=== PATIENT | male | born 1955 | race Caucasian/White ===

== ENCOUNTER 2016-07-25 19:33 | Emergency (ER) ==
[2016-07-25 19:38] VITALS: BP 179/82; TEMP 99.4; BMI 31.4
[2016-07-25] MEDS ORDERED: DUONEB NEB STA (19:50)
--- NOTE | 2016-07-25 19:57 | ED.PDOC ---
General ED Provider: Dr. THERESA MONTELONGO Chief Complaint: Weakness Stated Complaint: Patient is a 60 year old who comes to the ER with symtoms of feeling pooly for one month. He was treated by Dr. Hernandez with Steroids and Z pack felt somewhat better but then bad again. Had chest pain two weeks ago. Now only has mild shortness of breath. Has a family history of CAD. Quit smoking over 5 years ago. 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 Time Seen by Physician: 19:49 Mode of Arrival: Walk-In Information Source: Patient Exam Limitations: No limitations Primary Care Provider: JEAN CLAUDE HERNANDEZ Nursing and Triage Documentation Reviewed and Agree: Yes Respiratory Complaint Exam - Shortness of Air Complaint/Exam Onset/Duration: 1 month Symptoms Are: Still present Initial Severity: Mild Current Severity: Moderate Character: Reports: Dyspnea at rest Aggravating: Reports: None Associated Signs and Symptoms: Reports: Cough, Chest pain, Fever, Chills. Denies: Diaphoresis, Nasal congestion, Dizziness, Calf pain, Calf swelling, Edema, Rapid breathing, Labored breathing, Decreased intake Related History: Denies: Similar episode, Allergic reaction, Recent trauma, Obesity History of Healthcare-Acquired Pneumonia: No Pulmonary Embolism Risk Factors: Reports: None Cardiac Risk Factors: Reports: None Pseudomonas Risk Factors: Reports: None Tuberculosis Risk Factors: Reports: None Home Oxygen Use: Yes Recent Stress Test: No Recent Echo/LV Function: No Respiratory Distress: None Stridor Present: No Tracheal Deviation: No Subcutaneous Emphysema: No Accessory Muscle Use: No Retractions: Not Present Diminished Breath Sounds: No Prolonged Expiratory Phase: No Unable to Speak Full Sentences: No Fatigue: No Leg Swelling: No Faizan's Sign Present: No Grunting Respirations: No Kussmaul Respirations: No Differential Diagnoses: Pulmonary Edema, RI, Pneumonia, Bronchitis, Bronchiolitis, GERD, URI Quality Indicator For Non-Traumatic Chest Pain/Syncope: EKG Performed Review of Systems - Review Of Systems Constitutional: Reports: No symptoms Eyes: Reports: No symptoms Ears, Nose, Mouth, Throat: Reports: No symptoms Respiratory: Reports: Cough (two weeks ago), Short of air Cardiac: Reports: Chest pain (two week ago none today ) GI: Reports: No symptoms : Reports: No symptoms Musculoskeletal: Reports: No symptoms Skin: Reports: No symptoms Neurological: Reports: Anxiety Endocrine: Reports: No symptoms Hematologic/Lymphatic: Reports: No symptoms All Other Systems: Reviewed and Negative Past Medical History - Past Medical History Endocrine: Reports: DM 2 Cardiovascular: Reports: Hypertension Respiratory: Reports: None Hematological: Reports: None Gastrointestinal: Reports: None Genitourinary: Reports: None Neuro/Psych: Reports: Anxiety Musculoskeletal: Reports: None Cancer: Reports: None - Surgical History General Surgical History: Reports: None - Family History Family History: Reports: Heart, Cancer - Social History Smoking Status: Former smoker Hx Substance Use: No Alcohol Screening: Occasionally Physical Exam - Physical Exam Appearance: Ill-appearing Ill-appearing: Moderate Pain Distress: Mild Eyes: ALL, EOMI, Conjunctiva clear ENT: Ears normal, Nose normal, Oropharynx normal Neck: Supple Respiratory: Airway patent, Breath sounds clear, Breath sounds equal, Respirations nonlabored Cardiovascular: RRR, Pulses normal, No rub, No murmur GI/: Soft, Nontender, No masses, Bowel sounds normal, No Organomegaly Musculoskeletal: Normal strength, ROM intact, No edema, No calf tenderness Skin: Warm Neurological: Sensation intact, Motor intact Psychiatric: Anxious Critical Care Note - Critical Care Note Total Time (mins): 15 Course - Course Hematology/Chemistry: 07/25/16 19:59 07/25/16 19:59 Orders, Labs, Meds: Lab Review 07/25/16 07/25/16 07/25/16 19:59 20:04 20:17 WBC 9.69 RBC 5.40 Hgb 15.6 Hct 45.5 MCV 84.3 MCH 28.9 MCHC 34.3 RDW Coeff of Jack 13.1 Plt Count 184 Immature Gran % (Auto) 0.3 Neut % (Auto) 83.0 Lymph % (Auto) 8.0 L Mcdonough % (Auto) 6.6 Eos % (Auto) 1.8 Baso % (Auto) 0.3 Immature Gran # (Auto) 0.0 Neut # 8.0 H Lymph # 0.8 Mcdonough # 0.6 Eos # 0.2 Baso # 0.0 D-Dimer (Manual) 356.45 Puncture Site Lb O2 Saturation 96.0 ABG pH 7.424 ABG pCO2 33.1 L ABG pO2 76.0 L ABG HCO3 21.6 L ABG Total CO2 23 ABG Base Excess -3 L Tad Test + FiO2 % 21.0 Sodium 137 Potassium 4.5 Chloride 105 Carbon Dioxide 20 L Anion Gap 16.5 BUN 20 H Creatinine 1.10 Estimated GFR (MDRD) 68.00 BUN/Creatinine Ratio 18.18 Glucose 116 H Lactic Acid 10.3 Calcium 9.5 Total Bilirubin 0.96 AST 32 ALT 49 Alkaline Phosphatase 95 Total Creatine Kinase 62 Troponin I 0.0130 B-Natriuretic Peptide < 10 Total Protein 7.8 Albumin 3.9 Globulin 3.9 Albumin/Globulin Ratio 1.00 Procalcitonin < 0.05 Influenza A (Rapid) Negative Influenza B (Rapid) Negative Orders Category Date Time Status ABG DRAW REQUEST Stat CARDIO 07/25/16 19:45 Completed ABG DRAW REQUEST Stat CARDIO 07/25/16 19:46 Completed EKG-(ED ONLY) Stat CARDIO 07/25/16 19:45 Completed NEBULIZER TREATMENT Stat CARDIO 07/25/16 19:50 Completed ED IV/MEDIPORT/POWERPORT .ONCE EMERGENCY 07/25/16 21:37 Active ABG Stat LAB 07/25/16 20:17 Completed B-TYPE NATRIURETIC PEPTIDE Stat LAB 07/25/16 19:59 Completed BLOOD CULTURE Stat LAB 07/25/16 19:59 Results CBC W/ AUTO DIFF Stat LAB 07/25/16 19:59 Completed COMPREHENSIVE METABOLIC PANEL Stat LAB 07/25/16 19:59 Completed CREATINE KINASE Stat LAB 07/25/16 19:59 Completed D-DIMER Stat LAB 07/25/16 19:59 Completed LACTIC ACID Stat LAB 07/25/16 19:59 Completed MOLECULAR GROUP A STREP Stat LAB 07/25/16 20:04 Completed PROCALCITONIN Stat LAB 07/25/16 19:59 Completed RAPID FLU A/B Stat LAB 07/25/16 20:04 Completed STREP SCREEN Stat LAB 07/25/16 20:04 Completed TROPONIN I Stat LAB 07/25/16 19:59 Completed 0.9 % Sodium Chloride [Saline Flush] MEDS 07/25/16 19:45 Discontinued 1 syr IVF PRN PRN 0.9 % Sodium Chloride [Saline Flush] MEDS 07/25/16 21:37 Discontinued 1 syr IVF PRN PRN Ipratropium/Albuterol Neb [Duoneb] MEDS 07/25/16 19:50 Discontinued 1 vial NEB ONCE STA Sodium Chloride 0.9% [Sodium Chloride] 1,000 ml MEDS 07/25/16 21:37 Discontinued IV BOLUS CHEST, 1V AP ONLY Stat RADS 07/25/16 19:45 Completed Medications Discontinued Medications Generic Name Dose Route Start Last Admin Trade Name Freq PRN Reason Stop Dose Admin Albuterol/Ipratropium 1 vial 07/25/16 19:50 07/25/16 20:17 Duoneb NEB 07/25/16 19:51 1 vial ONCE STA Administration Sodium Chloride 1,000 mls @ 1,000 mls/hr 07/25/16 21:37 07/25/16 22:00 Sodium Chloride IV 07/25/16 22:36 1,000 mls/hr BOLUS STA Administration Sodium Chloride 1 syr 07/25/16 19:45 07/25/16 22:02 Saline Flush IVF 1 syr PRN PRN Administration To flush IV Sodium Chloride 1 syr 07/25/16 21:37 Saline Flush IVF PRN PRN To flush IV Vital Signs: Temp Pulse Resp BP Pulse Ox 07/25/16 19:33 99.4 F 92 H 22 179/82 H 96 Departure - Departure Time of Disposition: 23:10 Disposition: HOME SELF-CARE Discharge Problem: Viral illness Instructions: Viral Syndrome (ED) Condition: Fair Pt referred to PMD for follow-up: Yes Additional Instructions: Push fluids Take Tylenol and Motrin as needed for fever or chills Follow up with PCP in 3 days Allergies/Adverse Reactions: Allergies No Known Allergies Allergy (Verified 07/25/16 19:38) Home Medications: Ambulatory Orders Febuxostat [Uloric] 40 mg PO DAILY 07/25/16 Metformin HCl [Fortamet] 500 mg PO DAILY 07/25/16 Omeprazole [Prilosec] 20 mg PO QDAC 07/25/16 Paroxetine HCl [Paxil] 10 mg PO DAILY 07/25/16 Disposition Discussed With: Patient, Family
[2016-07-25 20:06] LABS: BASOPHILS % (AUTO) 0.3 % (0.0-3.0); EOSINOPHILS # (AUTO) 0.2 K/ul (0.0-0.7); EOSINOPHILS % (AUTO) 1.8 % (0.0-7.0); HEMATOCRIT 45.5 % (42.0-52.0); HEMOGLOBIN 15.6 g/dl (14.0-18.0); IMMATURE GRANULOCYTE % (AUTO) 0.3 % (0.0-5.0); LYMPHOCYTES # (AUTO) 0.8 K/uL (0.60-3.4); MEAN CORPUSCULAR HEMOGLOBIN 28.9 pg (27.0-31.0); MEAN CORPUSCULAR HGB CONC 34.3 (31.8-35.4); MEAN CORPUSCULAR VOLUME 84.3 fl (80.0-94.0); MONOCYTES # (AUTO) 0.6 K/uL (0.4-2.0); MONOCYTES % (AUTO) 6.6 (0-10); PLATELET COUNT 184 10^3/uL (140-440); WHITE BLOOD COUNT 9.69 K/ul (4.2-10.2)
[2016-07-25 20:36] LABS: ALBUMIN 3.9 g/dL (3.4-5.0); ANION GAP 16.5; BILIRUBIN,TOTAL 0.96 mg/dL (0.00-1.20); BUN/CREATININE RATIO 18.18; CALCIUM 9.5 mg/dL (8.2-10.2); CREATININE 1.1 mg/dL (0.60-1.10); POTASSIUM 4.5 mmol/L (3.5-5.1); TOTAL PROTEIN 7.8 g/dL (5.8-8.1); TROPONIN I 0.013 ng/ml (0.0000-0.4000)
[2016-07-25 20:37] LABS: FLU INTERNAL QC INTERNAL QC VALID; RAPID FLU A NEGATIVE (NEGATIVE); RAPID FLU B NEGATIVE (NEGATIVE)
[2016-07-25 20:47] LABS: ABG BASE EXCESS -3 (-2.0-2.0); ABG HCO3 21.6 (22.0-26.0); ABG PCO2 33.1 mmHg (35-45); ABG PH 7.424 (7.35-7.45); ABG TCO2 23 (22.0-28.0)
[2016-07-25] MEDS ORDERED: SODIUM CHLORIDE 1,000 ML IV STA (21:37)
--- NOTE | 2016-07-26 07:48 | DI ---
EXAM: Chest one view HISTORY: Cough COMPARISON: None TECHNIQUE: Single view of the chest was performed FINDINGS: The lungs are clear. There is no pleural effusion or pneumothorax. The heart is normal in size. The mediastinal contour is normal. There are no acute abnormalities of the bones. Several old left rib fractures. IMPRESSION: No acute cardiopulmonary process.
== END 2016-07-25 23:35 | disposition home or self-care (01) ==
LOC: ED 19:33
DX: B34.9 Viral infection, unspecified (principal); E11.9 Type 2 diabetes mellitus without complications; I10 Essential (primary) hypertension; R06.02 Shortness of breath; Z79.899 Other long term (current) drug therapy
CPT/HCPCS: 36415; 80053; 82550; 82803; 83605; 83880; 84145; 84484; 85025; 85379; 87040; 87651; 87804; 87880; 93005; 93010; 94640; 96360; 99283

== ENCOUNTER 2018-09-10 09:21 | Outpatient (POV) | END 2018-09-10 17:00 | LOC: OUTPT 09:21 | PROVIDERS: ATTEND Otolaryngology | DX: H91.90 Unspecified hearing loss, unspecified ear (principal) ==

== ENCOUNTER 2018-09-20 07:16 | Outpatient (CLI) ==
--- NOTE | 2018-09-20 11:43 | MRI ---
EXAM: Brain and IAC MRI with and without contrast. HISTORY: Hearing loss left ear. COMPARISON: None. TECHNIQUE: Multiplanar, multisequence MR images were acquired of the brain with thin sections throug h the internal auditory canals before and after administration of 20 ml Dotarem intravenous contrast. FINDINGS: The midline structures are central and the craniocervical junction is unremarkable. The v entricles, sulci and cisterns are prominent consistent with age related involutional changes. There are no abnormal extra-axial fluid collections. The brain has a small 5 mm focus of mild bright B 1000, ADC and T2 signal in the right posterior fron indu periventricular white matter consistent with a small focus of late subacute to chronic ischemia. There is no diffusion restriction to suggest acute ischemia. A chronic lacuna with surrounding glio sis is present in the posterior right frontal centrum semiovale and there are small chronic cortical and subcortical infarcts in the in the peripheral anterior and posterior superior and lateral right f rontal lobe, right postcentral gyrus and posterior and medial right parietal lobe. There is a small chronic infarct in the anterior right cedillo radiata that extends into the anterior basal ganglia, pr edominantly in the right anterior putamen with minor involvement of the anterior internal capsule. T here are chronic lacunes in the mid right cedillo radiata and right external capsule. These findings raise the possibility of a hemodynamically significant stenosis of the right carotid artery in the ne ck. There is a band of periventricular T2 hyperintensity and small T2 hyperintensities are present i n the subcortical periventricular white matter, deep white matter tracts and ivis. These are most nu merous in the centrum semiovale bilaterally and in the bilateral parietal periventricular white matte r. These findings are compatible with mild to moderate leukomalacia. After administration of contra st, no enhancing masses are identified in the brain parenchyma. The corpus callosum is normal. The pituitary gland is small with homogeneous contrast enhancement. The infundibulum is midline. There are no intraorbital masses. There is undulation of the nasal septum. Minor mucosal thickening is present in the ethmoid air cells bilaterally and there is minor mucosal thickening and small amou nt of fluid in several inferior left mastoid air cells. Thin sections through the posterior fossa sh ow no abnormal contrast enhancement in the internal auditory canals or labyrinthine structures. There is no vascular loop compression of the seventh and eighth cranial nerve complexes at the nerve root entry zones. However, small vessels cross the cisternal segments of these complexes without def lection of the nerves. Expected flow voids are present in the major intracranial arteries and dural venous sinuses. IMPRESSION: 1. No vestibular schwannoma, intracranial hemorrhage or acute cerebral infarct. 2. Age related involutional changes and mild to moderate leukomalacia which may be due to chronic mi crovascular ischemic disease or hypertensive encephalopathy. 3. 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
== END 2018-09-20 07:17 | disposition home or self-care (01) ==
LOC: RAD 07:16
PROVIDERS: ATTEND Otolaryngology
DX: H90.5 Unspecified sensorineural hearing loss (principal)
CPT/HCPCS: 36415; 82565